=== PATIENT | female | born 1990 ===

== ENCOUNTER 2018-10-30 18:09 | Emergency (ER) | payer SELFPAY ==
[~2018-10-30] VITALS: Ht 160 cm; Wt 72.6 kg
[2018-10-30] MEDS ORDERED: SODIUM CHLORIDE 0.9% 1000ML 1,000 ML IV STA (18:12)
[2018-10-30] MEDS ORDERED: LORAZEPAM INJ 2 MG/ML VIAL IV ONE (18:15)
--- NOTE | 2018-10-30 18:44 | NUR ---
pt refusing med, mom at bedside stating she wants pt to have medication. 4 family members with pt. md notified of pt refusal.
--- NOTE | 2018-10-30 19:08 | Diagnostic Imaging Report ---
EXAMINATION: CHEST SINGLE (PORTABLE) INDICATION: ^CP, ANXIETY ^[id number] ^[id number] COMPARISON: None FINDINGS: AP view TUBES and LINES: None. LUNGS/PLEURA: The lungs are clear. No pleural effusion or pneumothorax. HEART AND MEDIASTINUM: The cardiomediastinal silhouette is unremarkable. BONES AND SOFT TISSUES: No acute osseous lesion. Soft tissues are unremarkable. UPPER ABDOMEN: No free air under the diaphragm. IMPRESSION: No acute thoracic abnormality. Signed by: Walter Parish MD on 10/30/2018 7:05 PM
[2018-10-30 19:12] LABS: BASOPHILS % 0.4 % (0.0-1.0); EOSINOPHILS # (AUTO) 0.1 (0.0-0.4); HEMATOCRIT 39.4 % (34.2-44.1); HEMOGLOBIN 13.2 g/dL (12.0-16.0); LYMPHOCYTES # (AUTO) 3.2 (1.0-3.2); LYMPHOCYTES % 46.1 % (18.0-39.1); MEAN CORPUSCULAR HGB CONC 33.5 g/dL (31-35); MEAN CORPUSCULAR VOLUME 86.6 fL (81-99); MONOCYTES # (AUTO) 0.4 (0.2-0.8); MONOCYTES % 6.2 % (4.4-11.3); NEUTROPHILS # (AUTO) 3.2 (2.1-6.9); NEUTROPHILS % 46.2 % (38.7-80.0); PLATELET COUNT 366 x10e3/uL (140-360); RED BLOOD COUNT 4.55 x10e6/uL (3.6-5.1); RED CELL DISTRIBUTION WIDTH 14.2 % (11.7-14.4)
--- NOTE | 2018-10-30 19:17 | NUR ---
REPORT TO MARIAELENA TUCKER
[2018-10-30 19:34] LABS: ALANINE AMINOTRANSFERASE 27 IU/L (0-55); ALBUMIN 4.4 g/dL (3.5-5.0); ALBUMIN/GLOBULIN RATIO 1.2 (0.8-2.0); ALKALINE PHOSPHATASE 62 IU/L (40-150); ANION GAP 14.6 mmol/L (8-16); BLOOD UREA NITROGEN 13 mg/dL (7-26); BUN/CREATININE RATIO 15 (6-25); CALCIUM 10.1 mg/dL (8.4-10.2); CARBON DIOXIDE 23 mmol/L (22-29); CHLORIDE 101 mmol/L (98-107); CREATINE KINASE 356 IU/L (29-168); CREATININE, SERUM 0.89 mg/dL (0.57-1.11); EST GLOMERULAR FILTRATION RATE > 60 ML/MIN (60-); GLUCOSE 82 mg/dL (74-118); MAGNESIUM 2.1 MG/DL (1.3-2.1); POTASSIUM 3.6 mmol/L (3.5-5.1); SODIUM 135 mmol/L (136-145)
[2018-10-30 19:47] LABS: INR 0.83; PROTHROMBIN TIME 11.9 seconds (11.9-14.5)
[2018-10-30 19:48] LABS: PARTIAL THROMBOPLASTIN TIME 31.5 seconds (23.8-35.5)
[2018-10-30 21:09] VITALS: BP 129/84
== END 2018-10-30 21:18 | disposition home or self-care (01) ==
LOC: ER 18:09
DX: R55 Syncope and collapse (principal); F45.8 Other somatoform disorders; J45.909 Unspecified asthma, uncomplicated
CPT/HCPCS: 36415; 71045; 80053; 82550; 82553; 83735; 84484; 84702; 85025; 85610; 85730; 93005; 99283; J2060; J7030